=== PATIENT | female | born 1995 ===

== ENCOUNTER 2016-10-26 21:48 | Emergency (ER) | payer MEDICAID, OTHER ==
[2016-10-26 21:49] VITALS: BMI 32.5
[2016-10-26 22:06] VITALS: RESP 20; O2SAT 100
[2016-10-26] MEDS ORDERED: Sodium Chloride 0.9% 1,000 ML IV ONE (22:10)
--- NOTE | 2016-10-26 22:14 | C.PDOC ---
History Of Present Illness 20 y/o female c/o intermittent lower bilateral abdominal pain for 3 weeks. LMP July 27 with a (+) test. Denies vaginal bleeding, diarrhea, fever, chills, dysuria, or any other complaints. Time Seen by Provider: 10/26/16 22:13 Chief Complaint (Nursing): Abdominal Pain History Per: Patient History/Exam Limitations: no limitations Onset/Duration Of Symptoms: Days (3 weeks), Intermittent Episodes Current Symptoms Are (Timing): Still Present Severity: Mild Location Of Pain/Discomfort: RLQ, LLQ Radiation Of Pain To:: None Quality Of Discomfort: "Pain" Associated Symptoms: denies: Fever, Chills, Urinary Symptoms Exacerbating Factors: None Alleviating Factors: None Recent travel outside of the [place]: No Additional History Per: Patient Abnormal Vaginal Bleeding: No Past Medical History Reviewed: Historical Data, Nursing Documentation, Vital Signs Vital Signs: Last Vital Signs Temp 98.8 F 10/27/16 01:19 Pulse 97 H 10/27/16 01:19 Resp 20 10/27/16 01:19 BP 119/82 10/27/16 01:19 Pulse Ox 100 10/27/16 01:19 Family History: States: Unknown Family Hx - Social History Hx Tobacco Use: No Hx Alcohol Use: No Hx Substance Use: No - Immunization History Hx Tetanus Toxoid Vaccination: No Hx Influenza Vaccination: No Hx Pneumococcal Vaccination: No Review Of Systems Except As Marked, All Systems Reviewed And Found Negative. Constitutional: Negative for: Fever, Chills Gastrointestinal: Positive for: Abdominal Pain. Negative for: Diarrhea Genitourinary: Negative for: Dysuria, Hematuria, Vaginal Discharge, Vaginal Bleeding Physical Exam - Physical Exam Appears: Non-toxic, No Acute Distress Skin: Warm, Dry Head: Atraumatic, Normacephalic Cardiovascular: Rhythm Regular Respiratory: Normal Breath Sounds, No Rales, No Rhonchi, No Wheezing Gastrointestinal/Abdominal: Soft, Tenderness (Mild RUQ tenderness. Bilateral lower quadrant, right more than left.), No Guarding, No Rebound Back: Normal Inspection, No CVA Tenderness Neurological/Psych: Oriented x3, Normal Speech, Normal Cognition Gait: Steady ED Course And Treatment - Laboratory Results Result Diagrams: 10/26/16 22:32 10/26/16 22:32 O2 Sat by Pulse Oximetry: 100 (RA) Pulse Ox Interpretation: Normal Medical Decision Making Medical Decision Making: Impression: 20 y/o female c/o intermittent lower bilateral abdominal pain for 3 weeks. Plans: * Blood work up * IV fluids * UA * US Abd * US pelvis Disposition Counseled Patient/Family Regarding: Diagnosis - Disposition Referrals: [facility] [Outside] Disposition: HOME/ ROUTINE Disposition Time: :31 Condition: STABLE Prescriptions: Acetaminophen [Tylenol 325mg tab] 650 mg PO Q4 #20 tab Instructions: Abdominal Pain in (ED) Forms: [employer] (Korean), Gen Discharge Inst Serbian Print Language: HEBREW - POA Present On Arrival: None - Clinical Impression Clinical Impression: , Abdominal pain during - Scribe Statement The provider has reviewed the documentation as recorded by the Scribe Charles sher All medical record entries made by the Scribe were at my direction and personally dictated by me. I have reviewed the chart and agree that the record accurately reflects my personal performance of the history, physical exam, medical decision making, and the department course for this patient. I have also personally directed, reviewed, and agree with the discharge instructions and disposition.
--- NOTE | 2016-10-26 22:14 | C.PDOC ---
Chief Complaint (Nursing): Abdominal Pain Past Medical History Vital Signs: Last Vital Signs Temp 98.3 F 10/26/16 22:02 Pulse 115 H 10/26/16 22:02 Resp 20 10/26/16 22:02 BP 122/88 10/26/16 22:02 Pulse Ox 100 10/26/16 22:02 Family History: States: Unknown Family Hx - Social History Hx Tobacco Use: No Hx Alcohol Use: No Hx Substance Use: No - Immunization History Hx Tetanus Toxoid Vaccination: No Hx Influenza Vaccination: No Hx Pneumococcal Vaccination: No ED Course And Treatment O2 Sat by Pulse Oximetry: 100 Disposition - Disposition Forms: [employer] (Dominican)
[2016-10-26] MEDS ORDERED: Albuterol-Ipratrop 3 mg / 0.5 (3 ml) UD INH STA (22:32)
[2016-10-26 22:36] LABS: BASO # 0.1 K/uL (0.0-0.2); BASO % 0.7 % (0.0-2.0); EOS # 0.1 K/uL (0.0-0.7); EOS % 0.8 % (0.0-4.0); HEMATOCRIT 39.1 % (34.0-47.0); LYMPH # 2.5 K/uL (1.0-4.3); LYMPH % 24.2 % (20.0-40.0); MEAN CELL VOLUME 85.2 fL (81.0-99.0); MEAN CORPUSCULAR HEMOGLOBIN 28.2 pg (27.0-31.0); MEAN CORPUSCULAR HGB CONC 33.1 g/dL (33.0-37.0); MEAN PLATELET VOLUME 8.8 fL (7.2-11.7); MONO # 0.7 K/uL (0.0-0.8); MONO % 6.7 % (0.0-10.0); RED CELL DISTRIBUTION WIDTH 13.1 % (11.5-14.5); WHITE BLOOD COUNT 10.5 K/uL (4.8-10.8)
[2016-10-26 22:39] LABS: RBC URINE < 1 /hpf (0-3); URINE BILIRUBIN NEGATIVE (NEGATIVE); URINE BLOOD NEGATIVE (NEGATIVE); URINE COLOR Yellow (YELLOW); URINE GLUCOSE (UA) NORMAL (Normal); URINE KETONE NEGATIVE (NEGATIVE); URINE LEUKOCYTE ESTERASE NEG Leu/uL (Negative); URINE PROTEIN NEGATIVE (NEGATIVE); URINE UROBILINOGEN NORMAL mg/dL (0.2-1.0); WBC URINE < 1 /hpf (0-5)
[2016-10-26 22:46] LABS: CHLORIDE 103 mmol/L (98-107); POTASSIUM 3.8 mmol/L (3.6-5.2); SODIUM 139 mmol/L (132-148)
[2016-10-26 22:48] LABS: GFR AFRICAN-AMERICAN > 60
[2016-10-26 22:49] LABS: ALB/GLOB RATIO 1.3 (1.0-2.1); ALKALINE PHOSPHATASE 47 U/L (38-126); ALT/SGPT 53 U/L (9-52); AST/SGOT 30 U/L (14-36); BILIRUBIN,TOTAL 0.5 mg/dL (0.2-1.3); BLOOD UREA NITROGEN 14 mg/dL (7-17); CALCIUM 9.3 mg/dl (8.6-10.4); CARBON DIOXIDE 25 mmol/L (22-30); GLUCOSE,RANDOM 91 mg/dL (65-105); TOTAL PROTEIN 6.7 g/dL (6.3-8.3)
--- NOTE | 2016-10-27 00:28 | US ---
EXAM: US Abdomen Complete CLINICAL HISTORY: 20 years old, female; Pain; Abdominal pain; Additional info: Abd pain TECHNIQUE: Real-time ultrasound of the abdomen (complete) with image documentation. COMPARISON: No relevant prior studies available. FINDINGS: Liver: Fatty infiltration. 1.2 x 1.0 x 1.4 cm hyperechoic lesion. 0.6 cm calcification. No intrahepatic ductal dilatation. Gallbladder: No gallstones. No wall thickening. No pericholecystic fluid. No sonographic Hebert's sign. Common bile duct: No dilatation. No stones. Pancreas: Unremarkable as visualized. Kidneys: Normal echogenicity. 0.7 x 0.6 x 1.1 cm RIGHT renal cyst. No calculi. No hydronephrosis. Spleen: No splenomegaly. Aorta: Unremarkable. No aneurysm. Inferior vena cava: Unremarkable. Free fluid: No significant free fluid. IMPRESSION: 1. Liver lesion, indeterminate. Recommend nonemergent MRI. 2. Incidental/non-acute findings are described above.
--- NOTE | 2016-10-27 00:35 | US ---
EXAM: US First Trimester, Transabdominal CLINICAL HISTORY: 20 years old, female; Pain; Abdominal pain; Lower abdomen; Additional info: Right sided abd pain TECHNIQUE: Real-time transabdominal obstetrical ultrasound of the maternal pelvis and a first trimester with image documentation. COMPARISON: No relevant prior studies available. FINDINGS: Gestation: 0.2 x 0.1 cm sac like structure within uterus. No yolk sac. No pole. Uterus/cervix: Retroverted uterus. Endometrium: 1.3 cm in thickness. 0.2 x 0.3 x 0.3 cm shadowing echogenic focus within/along endometrium, likely air or calcification. Closed cervix. Ovaries: Normal ovaries. No adnexal masses. Free fluid: Small free fluid within pelvis. IMPRESSION: 1. Tiny sac without pole or yolk sac. DDX: Early IUP, blighted ovum, ectopic (with pseudogestational sac). Followup is recommended. 2. Incidental/non-acute findings are described above. EXAM: US , Transvaginal CLINICAL HISTORY: 20 years old, female; Pain; Abdominal pain; Lower abdomen; Additional info: Right sided abd pain TECHNIQUE: Real-time transvaginal obstetrical ultrasound of the maternal pelvis and a first trimester with image documentation. Transvaginal imaging was used for better evaluation of the fetus and adnexa. COMPARISON: No relevant prior studies available. FINDINGS: Gestation: 0.2 x 0.1 cm sac like structure within uterus. No yolk sac. No pole. Uterus/cervix: Retroverted uterus. Endometrium: 1.3 cm in thickness. 0.2 x 0.3 x 0.3 cm shadowing echogenic focus within/along endometrium, likely air or calcification. Closed cervix. Ovaries: Normal ovaries. No adnexal masses. Free fluid: Small free fluid within pelvis.
[2016-10-27 01:21] VITALS: BP 119/82; PULSE 97
[2016-10-27 01:42] VITALS: TEMP 97.8
== END 2016-10-27 01:49 | disposition home or self-care (01) ==
LOC: C.ER 21:48
DX: O26.899 Other specified pregnancy related conditions, unspecified trimester (principal); R10.9 Unspecified abdominal pain; Z3A.00 Weeks of gestation of pregnancy not specified
CPT/HCPCS: 76700; 76830; 76856; 80053; 81001; 83690; 84702; 84703; 85025; 86850; 86900; 99284; J7040

== ENCOUNTER 2016-11-06 14:08 | Emergency (ER) | payer SELFPAY ==
[2016-11-06 14:08] VITALS: BMI 32.5
[2016-11-06] MEDS ORDERED: Sodium Chloride 0.9% 1,000 ML IV ONE (14:33)
--- NOTE | 2016-11-06 14:37 | C.PDOC ---
History Of Present Illness Patient is a 5-week , 20 y/o female who presents to the ED with complaints of suprapubic cramping and vaginal bleeding beginning this morning. Denies fever, nausea, and vomiting. Patient has no other complaints at this time. Time Seen by Provider: 11/06/16 14:28 Chief Complaint (Nursing): Female Genitourinary History Per: Patient History/Exam Limitations: no limitations Onset/Duration Of Symptoms: Hrs (symptoms began this morning) Current Symptoms Are (Timing): Still Present Associated Symptoms: denies: Fever, Nausea, Vomiting Recent travel outside of the [place]: No Abnormal Vaginal Bleeding: Yes : 3 Para: 1 Past Medical History Reviewed: Historical Data, Nursing Documentation, Vital Signs Vital Signs: Last Vital Signs Temp 99.0 F 11/06/16 17:16 Pulse 98 H 11/06/16 17:16 Resp 18 11/06/16 17:16 BP 117/72 11/06/16 17:16 Pulse Ox 99 11/06/16 17:18 - Medical History PMH: No Chronic Diseases Surgical History: No Surg Hx Family History: States: Unknown Family Hx - Social History Hx Tobacco Use: No Hx Alcohol Use: No Hx Substance Use: No - Immunization History Hx Tetanus Toxoid Vaccination: No Hx Influenza Vaccination: No Hx Pneumococcal Vaccination: No Review Of Systems Except As Marked, All Systems Reviewed And Found Negative. Gastrointestinal: Positive for: Abdominal Pain (suprapubic cramping. ) Genitourinary: Positive for: Vaginal Bleeding Physical Exam - Physical Exam Appears: Well, Non-toxic Skin: Normal Color, Warm, Dry Head: Atraumatic, Normacephalic Oral Mucosa: Moist Cardiovascular: Rhythm Regular, No Murmur Respiratory: Normal Breath Sounds, No Rales, No Rhonchi, No Wheezing Gastrointestinal/Abdominal: Soft, Tenderness (mild in suprapubic area. ) Neurological/Psych: Oriented x3, Normal Speech, Normal Cognition ED Course And Treatment - Laboratory Results Result Diagrams: 11/06/16 14:51 11/06/16 14:51 O2 Sat by Pulse Oximetry: 99 (room air) Pulse Ox Interpretation: Normal - CT Scan/US ster/ob Other Rad Studies (CT/US): Interpreted By Me, Read By Radiologist CT/US Interpretation: intrauterine gestational sac. Sac diameter is out of range for determination of age. No pole identified. No detectable cardiac activity. Medical Decision Making Medical Decision Making: Plan: Blood work, UA, and US transvaginal ordered; IV fluids administered. discussed results with obgyn adapted physical education teacher dr kohli. recommends outpt f/u. Disposition - Disposition Referrals: [facility] [Outside] Contreras Kohli MD [Staff Provider] - Disposition: HOME/ ROUTINE Disposition Time: 17:17 Condition: STABLE Additional Instructions: please follow up outpt with your obgyn in next 1-2 days return to er with worsening symptoms or concerns. Instructions: Spontaneous Miscarriage (ED) Forms: [employer] (Belarusian) - Clinical Impression Clinical Impression: Miscarriage - Scribe Statement The provider has reviewed the documentation as recorded by the Scribe Marcela Martin All medical record entries made by the Scribe were at my direction and personally dictated by me. I have reviewed the chart and agree that the record accurately reflects my personal performance of the history, physical exam, medical decision making, and the department course for this patient. I have also personally directed, reviewed, and agree with the discharge instructions and disposition.
[2016-11-06] MEDS ORDERED: Sodium Chloride 0.9% 1,000 ML ONE (14:53)
[2016-11-06 14:56] LABS: BASO % 0.5 % (0.0-2.0); EOS # 0.1 K/uL (0.0-0.7); EOS % 0.9 % (0.0-4.0); HEMATOCRIT 39.5 % (34.0-47.0); LYMPH # 1.8 K/uL (1.0-4.3); LYMPH % 21.3 % (20.0-40.0); MEAN CELL VOLUME 85.7 fL (81.0-99.0); MEAN CORPUSCULAR HEMOGLOBIN 28.6 pg (27.0-31.0); MEAN CORPUSCULAR HGB CONC 33.3 g/dL (33.0-37.0); MEAN PLATELET VOLUME 8.5 fL (7.2-11.7); MONO # 0.6 K/uL (0.0-0.8); MONO % 7.6 % (0.0-10.0); RED CELL DISTRIBUTION WIDTH 13.7 % (11.5-14.5); WHITE BLOOD COUNT 8.5 K/uL (4.8-10.8)
[2016-11-06 15:04] LABS: CHLORIDE 103 mmol/L (98-107); SODIUM 138 mmol/L (132-148)
[2016-11-06 15:05] LABS: INR 1.1
[2016-11-06 15:06] LABS: BILIRUBIN,TOTAL 0.5 mg/dL (0.2-1.3); GFR AFRICAN-AMERICAN > 60
[2016-11-06 15:07] LABS: ALB/GLOB RATIO 1.3 (1.0-2.1); ALKALINE PHOSPHATASE 48 U/L (38-126); ALT/SGPT 52 U/L (9-52); AST/SGOT 25 U/L (14-36); BLOOD UREA NITROGEN 9 mg/dL (7-17); CARBON DIOXIDE 24 mmol/L (22-30); GLUCOSE,RANDOM 84 mg/dL (65-105); TOTAL PROTEIN 7.1 g/dL (6.3-8.3)
[2016-11-06 15:27] LABS: RBC URINE 105 /hpf (0-3); URINE BILIRUBIN NEGATIVE (NEGATIVE); URINE BLOOD 2+ (NEGATIVE); URINE COLOR Yellow (YELLOW); URINE GLUCOSE (UA) NORMAL (Normal); URINE KETONE NEGATIVE (NEGATIVE); URINE LEUKOCYTE ESTERASE TRACE Leu/uL (Negative); URINE PROTEIN NEGATIVE (NEGATIVE); URINE UROBILINOGEN NORMAL mg/dL (0.2-1.0); WBC URINE 3 /hpf (0-5)
--- NOTE | 2016-11-06 16:54 | US ---
PROCEDURE: OB Pelvic Ultrasound HISTORY: abd pain COMPARISON: None available. FINDINGS: UTERUS: Intrauterine gestational sac identified. 3 mm yolk sac visualized. No pole identified. Gestational sac measures 10 mm diameter, out of range for determination of gestational age. No detectable cardiac activity. Sofya-gestational hemorrhage: None. Uterus measures 8.8 x 5.5 x 6.3 cm. No mass CERVIX: Long and closed. No cervical abnormality seen. RIGHT OVARY: Measures 3.1 x 2.3 x 2.3 cm. No mass. Normal flow. LEFT OVARY: Measures 3.7 x 2.1 x 3.4 cm. No mass. Normal flow. FREE FLUID: Trace OTHER FINDINGS: None. IMPRESSION: Intrauterine gestational sac. Sac diameter is out of range for determination of age. No pole identified. No detectable cardiac activity.
[2016-11-06 17:17] VITALS: BP 117/72; PULSE 98; RESP 18; TEMP 99
[2016-11-06 17:18] VITALS: O2SAT 99
== END 2016-11-06 17:50 | disposition home or self-care (01) ==
LOC: C.ER 14:08
DX: O03.9 Complete or unspecified spontaneous abortion without complication (principal); Z3A.01 Less than 8 weeks gestation of pregnancy
CPT/HCPCS: 76805; 76817; 80053; 81001; 84702; 84703; 85025; 85610; 85730; 86850; 86900; 96360; 99285; J7040